=== PATIENT | female | born 1955 | race Caucasian/White ===

== ENCOUNTER → 2016-10-20 | Outpatient (CLI) | payer OTHER ==
[~2016-10-20] MED LIST: CONJ0.3T3 PO; FEXO1TAB49 PO; FLUT27.5 NAE; LEVO100T84 PO; LEVO88TA PO; MONT1TAB3 PO; SPIR25TA PO
[2016-10-20 11:28] LABS: BASO ABS # 0.06 K/uL (0-0.2); COMPLETE YES; EOS % 5.1 %; HEMATOCRIT 40.5 % (37-47); LYMPH ABS # 2.18 K/uL (1.2-3.4); MEAN CELL VOLUME 91.8 fL (80-100); MEAN CORPUSCULAR HEMOGLOBIN 31.1 pg (25-34); MEAN CORPUSCULAR HGB CONC 33.8 g/dl (32-36); MEAN PLATELET VOLUME 10.3 fL (7.4-10.4); MONO % 9.8 %; NEUT % 47.1 %; PLATELET COUNT 343 K/uL (130-400); RED BLOOD COUNT 4.41 M/uL (4.2-5.4); WHITE BLOOD COUNT 5.89 K/uL (4.8-10.8)
[2016-10-20 11:56] LABS: ALT/SGPT 21 U/L (12-78); AST/SGOT 10 U/L (15-37); BLOOD UREA NITROGEN 16 mg/dl (7-18); BUN/CREATININE RATIO 16.8 (10-20); CALCIUM 9.3 mg/dl (8.5-10.1); CARBON DIOXIDE 27 mmol/L (21-32); CHLORIDE 106 mmol/L (98-107); CREATININE 0.93 mg/dl (0.60-1.20); GLUCOSE 90 mg/dl (70-99); HDL CHOLESTEROL 91 mg/dl; SODIUM 141 mmol/L (136-145)
[2016-10-20 12:03] LABS: ALB/GLOB RATIO 1.4 (0.9-2); ALKALINE PHOSPHATASE 73 U/L (45-117); CHOLESTEROL 224 mg/dl (0-200); CHOLESTEROL/HDL RATIO 2.5; LDL CHOLESTEROL CALCULATED 117 mg/dl; TRIGLYCERIDES 79 mg/dl (0-150); VERY LOW DENSITY LIPOPROT CALC 16 mg/dl
== END | disposition home or self-care (01) ==
LOC: C.LABBC 07:41
PROVIDERS: ATTEND Nurse Practitioner Family
DX: E03.9 Hypothyroidism, unspecified (principal); Z13.220 Encounter for screening for lipoid disorders